=== PATIENT | male | born 1975 | race Two or more races ===

== ENCOUNTER 2017-09-05 05:46 | Emergency (ER) | payer OTHER ==
[2017-09-05 05:57] LABS: BASOPHIL (%) 0.3 % (0-1); EOSINOPHIL (%) 0.8 % (0-5); EOSINOPHIL COUNT 0.1 K/uL (0-0.3); HEMATOCRIT 40.1 % (38.0-50.0); HEMOGLOBIN 13.4 G/DL (12.5-16.6); IMMATURE GRANULOCYTE (%) 0.3 % (0.0-0.7); LYMPHOCYTE COUNT 3.9 K/uL (1.0-2.8); MCH 27.7 PG (29.0-34.0); MCHC 33.4 G/DL (30.0-36.0); MCV 82.9 FL (86-99); MONOCYTE (%) 6.7 % (3-12); MONOCYTE COUNT 0.8 K/uL (0-0.8); NEUTROPHIL (%) 58.9 % (45-76); PLATELET COUNT 291 K/uL (156-360); RBC DIS.WIDTH-CV 13.2 % (11.8-14.6); RBC DIS.WIDTH-SD 39.8 % (39-53); RED BLOOD COUNT 4.84 M/uL (4.00-5.50); WHITE BLOOD COUNT 11.8 K/uL (4.1-10.2)
[2017-09-05 06:07] LABS: AMYLASE 57 IU/L (1-118); CHLORIDE 101 mEq/L (99-109); POTASSIUM 3.1 mEq/L (3.7-5.4); SODIUM 140 mEq/L (136-147)
[2017-09-05 06:09] LABS: GLUCOSE 124 mg/dL (70-99)
[2017-09-05 06:12] LABS: SERUM ETHYL ALCOHOL < 10 mg/dL
[2017-09-05 06:13] LABS: CREATININE 1.2 mg/dL (0.6-1.3)
[2017-09-05 06:14] LABS: UREA NITROGEN (BUN) 7 mg/dL (9-23)
[2017-09-05 06:15] LABS: GFR ESTIMATE (CALCULATED) > 59 mL/min/ (58.99-99999)
[2017-09-05 06:16] LABS: LIPASE 31 U/L (1.0-51.0)
[2017-09-05 07:30] VITALS: BP 127/88
[2017-09-05] MEDS ORDERED: PERCOCET 5/31 TABLET PO (08:09)
[2017-09-05] MEDS ORDERED: MOTRIN800 MG PO (08:09)
[2017-09-05] MEDS ORDERED: FLEXERIL10 MG PO (08:09)
[2017-09-05 08:13] LABS: APPEARANCE CLEAR ((CLEAR)); BILIRUBIN NEGATIVE; BLOOD NEGATIVE; COLOR YELLOW ((YELLOW)); GLUCOSE (STRIP) NEGATIVE; KETONES NEGATIVE; LEUKOCYTES NEGATIVE; NITRITE NEGATIVE; PROTEIN (STRIP) NEGATIVE; SPECIFIC GRAVITY 1.049 (1.000-1.030); UCUL ADDED? NO; UROBILINOGEN 0.2 MG/DL (0.2-1.0)
[2017-09-05 08:24] LABS: AMPHETAMINE NEGATIVE (500 ng/mL); BARBITURATES NEGATIVE (200 ng/mL); BENZODIAZEPINES NEGATIVE (150 ng/mL); BUPRENORPHINE NEGATIVE (10 ng/mL); COCAINE NEGATIVE (150 ng/mL); METHADONE NEGATIVE (200 ng/mL); METHAMPHETAMINE NEGATIVE (500 ng/mL); OPIATES (MORPHINE) PRESUMPTIVE POSITIVE (100 ng/mL); OXYCODONE PRESUMPTIVE POSITIVE (100 ng/mL); PHENCYCLIDINE NEGATIVE (25 ng/mL); PROPOXYPHENE NEGATIVE (300 ng/mL); THC CANNABINOIDS NEGATIVE (50 ng/mL); TRICYCLIC ANTIDEPRESSANTS NEGATIVE (300 ng/mL)
== END 2017-09-05 09:10 | disposition home or self-care (01) ==
LOC: TRA 05:46
PROVIDERS: Emergency Medicine
PROC: 0HQEXZZ Repair Left Lower Arm Skin, External Approach (ICD-10-PCS; principal; 2017-09-05)
DX: S20.212A Contusion of left front wall of thorax, initial encounter (principal); S51.022A Laceration with foreign body of left elbow, initial encounter; M79.661 Pain in right lower leg; M79.662 Pain in left lower leg; R10.9 Unspecified abdominal pain; V68.5XXA Driver of heavy transport vehicle injured in noncollision transport accident in traffic accident, initial encounter; M50.321 Other cervical disc degeneration at C4-C5 level; M47.894 Other spondylosis, thoracic region; J98.11 Atelectasis
CPT/HCPCS: 70450; 71260; 72125; 73080; 74177; 80048; 81003; 82150; 83690; 84999; 85025; 86850; 86900; 86901; 99281; 99285; G0480; J2270; J2405